=== PATIENT | male | born 2000 | race Caucasian/White ===

== ENCOUNTER → 2022-08-04 | Outpatient (CLI) | payer BC ==
[~2022-08-04] MED LIST: ALBU2SYA PO; ALBU90OI INH; AZIT100SU PO; RXAZITHSU PO
== END | disposition home or self-care (01) ==
LOC: EDSTATUS 07:35 → LAB SHORT 14:52 → LAB 14:52
DX: R19.7 Diarrhea, unspecified (principal)
CPT/HCPCS: 83993

== ENCOUNTER 2024-04-02 12:05 | Emergency (ER) | payer BC ==
[~2024-04-02] VITALS: Ht 182.9 cm; Wt 65.8 kg
[2024-04-02 12:28] VITALS: BP 143/91
[2024-04-02] MEDS ORDERED: HYDROcodone 5-APAP 325 TAB PO ONE (13:00)
[2024-04-02] MEDS ORDERED: HYDR1TAB94 PO (13:51)
== END 2024-04-02 14:09 | disposition home or self-care (01) ==
LOC: ER 12:05
DX: S03.2XXA Dislocation of tooth, initial encounter (principal); Z88.0 Allergy status to penicillin; Z88.2 Allergy status to sulfonamides; Z97.2 Presence of dental prosthetic device (complete) (partial); Z59.89 Other problems related to housing and economic circumstances; W50.0XXA Accidental hit or strike by another person, initial encounter; Y93.67 Activity, basketball
CPT/HCPCS: 70486; 99283-25; A9270